=== PATIENT | female | born 2000 | race Caucasian/White ===

== ENCOUNTER 2018-01-17 02:01 | Emergency (ER) | payer OTHER ==
--- NOTE | 2018-01-17 02:36 | ED Physician Documentation ---
History of Present Illness - Stated complaint Stated Complaint: VOMITING - Chief complaint Chief Complaint: Abd Pain - History obtained from History obtained from: Patient - History of Present Illness Timing: Other (episodic x 5 months) Pain level now: 6 Improved by: no ameliorating factors Worsened by: no exacerbating factors - Additonal information Additional information: c/o back and lower abdominal pain, generalized headache x 5 months. presents tonight due to nausea, vomiting, and diarrhea that started tonight. She also c/ o vaginal d/c x 1 week . c/o urinary frequency without dysuria Review of Systems Constitutional: denies: Fever, Chills, Sweats Cardiac: reports: Reviewed and negative Respiratory: reports: Reviewed and negative GI: reports: Abdominal Pain, Nausea, Vomiting, Diarrhea : reports: Frequency. denies: Dysuria Musculoskeletal: reports: Back pain Neurologic: reports: Headache PD PAST MEDICAL HISTORY - Past Medical History Past Medical History: No - Past Surgical History Past Surgical History: No - Present Medications Home Medications: Ambulatory Orders Medication Instructions Recorded Confirmed Acetaminophen [Tylenol] 2 tab PO Q6HR PRN 01/17/18 01/17/18 Ibuprofen [Motrin] 1 tab PO Q8HR PRN 01/17/18 01/17/18 Ondansetron Odt [Zofran] 4 mg TL Q6H PRN #14 tablet 01/17/18 - Allergies Allergies/Adverse Reactions: Allergies Allergy/AdvReac Type Severity Reaction Status Date / Time No Known Drug Allergies Allergy Verified 01/17/18 02:19 - Social History Does the pt smoke?: No Smoking Status: Never smoker Does the pt drink ETOH?: No Does the pt have substance abuse?: No - Immunizations Immunizations are current?: Yes - POLST Patient has POLST: No PD ED PE NORMAL - Vitals Vital signs reviewed: Yes - General General: Alert and oriented X 3, No acute distress, Well developed/nourished - HEENT HEENT: Moist mucous membranes - Cardiac Cardiac: RRR, No murmur - Respiratory Respiratory: No respiratory distress, Clear bilaterally - Abdomen Abdomen: Soft, Non distended, Other (tenderness across lower abdomen without rebound or guarding, most pronounced in RLQ) - Back Back: No CVA TTP - Derm Derm: Normal color, Warm and dry Results - Vitals Vitals: Oxygen O2 Source Room air - Labs Labs: Laboratory Tests 01/17/18 01/17/18 01/17/18 03:05 03:05 03:05 WBC 10.8 RBC 4.65 Hgb 13.9 Hct 41.5 MCV 89.3 MCH 29.9 MCHC 33.5 RDW 13.4 Plt Count 214 MPV 8.3 Neut # 8.1 H Lymph # 1.9 [place] # 0.7 Eos # 0.0 Baso # 0.0 Absolute Nucleated RBC 0.00 Nucleated RBC % 0.0 Sodium 137 Potassium 4.4 Chloride 101 Carbon Dioxide 28 Anion Gap 8.0 BUN 20 Creatinine 0.6 Estimated GFR (MDRD) 129 Glucose 101 H Calcium 9.2 Total Bilirubin 0.4 AST 40 ALT 65 H Alkaline Phosphatase 58 Total Protein 7.8 Albumin 4.7 Globulin 3.1 Albumin/Globulin Ratio 1.5 Lipase 16 L Urine Color YELLOW Urine Clarity CLEAR Urine pH 6.0 Ur Specific [place] 1.025 Urine Protein NEGATIVE Urine Glucose (UA) NEGATIVE Urine Ketones NEGATIVE Urine Occult Blood NEGATIVE Urine Nitrite NEGATIVE Urine Bilirubin NEGATIVE Urine Urobilinogen 0.2 (NORMAL) Ur Leukocyte Esterase TRACE H Urine RBC 0-5 Urine WBC 4-5 Ur Squamous Epith Cells MANY Squamous H Urine Bacteria Few Ur Microscopic Review INDICATED Urine Culture Comments NOT INDICATED Urine HCG, Qual NEGATIVE - Rads (name of study) CT A/P Radiology: Prelim report reviewed, See rad report PD MEDICAL DECISION MAKING - ED course Complexity details: reviewed results, re-evaluated patient, considered differential, d/w patient Departure - Departure Disposition: 01 Home, Self Care Clinical Impression: Abdominal pain Qualifiers: Abdominal location: generalized Qualified Code(s): R10.84 - Generalized abdominal pain Cyst of ovary Qualifiers: Laterality: right Qualified Code(s): N83.201 - Unspecified ovarian cyst, right side Condition: Good Instructions: ED Abdominal Pain Unkn Cause, ED Cyst Ovarian Follow-Up: JUAN MAO MD [Primary Care Provider] - Prescriptions: Ondansetron Odt [Zofran] 4 mg TL Q6H PRN #14 tablet PRN Reason: Nausea / Vomiting Discharge Date/Time: 01/17/18 05:15
[2018-01-17] MEDS ORDERED: ONDANSETRON 4 MG/2 ML VIAL IVP STA (02:58)
[2018-01-17] MEDS ORDERED: SODIUM CHLORIDE 0.9% 1,000 ML IV STA (02:58)
[2018-01-17 03:13] LABS: BILIRUBIN,URINE NEGATIVE (NEGATIVE); CLARITY,URINE CLEAR (CLEAR); GLUCOSE, URINE (UA) NEGATIVE (NEGATIVE); KETONES,URINE (UA) NEGATIVE (NEGATIVE); LEUKOCYTE ESTERASE, URINE TRACE (NEGATIVE); NITRITE,URINE NEGATIVE (NEGATIVE); OCCULT BLOOD,URINE NEGATIVE (NEGATIVE); PROTEIN,URINE NEGATIVE (NEGATIVE); UROBILINOGEN,URINE 0.2 (NORMAL) E.U./dL (NORMAL)
[2018-01-17 03:15] LABS: HCG UR QUAL NEGATIVE
[2018-01-17 03:18] LABS: RBC,URINE 0-5 /HPF (0-5); SQUAMOUS EPITHELIAL CELL,UR MANY Squamous (<= Few)
[2018-01-17 03:19] LABS: BACTERIA,URINE Few /HPF (None Seen)
[2018-01-17 03:22] LABS: BASOPHILS % (AUTO) 0.2 %; EOSINOPHILS % (AUTO) 0.3 %; HGB - HEMOGLOBIN 13.9 g/dL (12.0-16.0); LYMPHOCYTES # (AUTO) 1.9 10^3/uL (1.5-3.5); MEAN CORPUSCULAR HEMOGLOBIN 29.9 pg (27.0-31.0); MEAN CORPUSCULAR HGB CONC 33.5 g/dL (32.0-36.0); MEAN CORPUSCULAR VOLUME 89.3 fL (81.0-99.0); MEAN PLATELET VOLUME 8.3 fL (7.9-10.8); MONOCYTES # (AUTO) 0.7 10^3/uL (0.0-1.0); MONOCYTES % (AUTO) 6.6 %; NEUTROPHILS # (AUTO) 8.1 10^3/uL (1.5-6.6); NEUTROPHILS % (AUTO) 74.9 %; PLT - PLATELET COUNT 214 10^3/uL (130-450); RED BLOOD COUNT 4.65 10^6/uL (4.20-5.40); RED CELL DISTRIBUTION WIDTH 13.4 % (12.0-15.0); WHITE BLOOD COUNT 10.8 x10^3/uL (4.8-10.8)
[2018-01-17 03:23] LABS: ALBUMIN 4.7 g/dL (3.2-5.5); ALBUMIN/GLOBULIN RATIO 1.5 (1.0-2.2); BILIRUBIN,TOTAL 0.4 mg/dL (0.2-1.0); CALCIUM 9.2 mg/dL (8.5-10.3); CREATININE 0.6 mg/dL (0.4-1.0); TOTAL PROTEIN 7.8 g/dL (6.7-8.2)
[2018-01-17] MEDS ORDERED: IOPAMIDOL-300 100 ML VIAL ONE (03:27)
[2018-01-17] MEDS ORDERED: IOPAMIDOL-300 100 ML VIAL IVP ONE (03:55)
--- NOTE | 2018-01-17 04:09 | CT Report ---
EXAM: CT ABDOMEN AND PELVIS EXAM DATE: 01/17/2018 03:39 AM. CLINICAL HISTORY: Right lower quadrant pain. Nausea and vomiting. COMPARISONS: None. TECHNIQUE: Routine helical CT imaging was performed through the abdomen and pelvis. IV contrast: 100 ML ISOVUE 300. Enteric contrast: No. Reconstructions: Coronal and sagittal. In accordance with CT protocol optimization, one or more of the following dose reduction techniques w ere utilized for this exam: automated exposure control, adjustment of mA and/or KV based on patient s ize, or use of iterative reconstructive technique. FINDINGS: Lung Bases: Unremarkable. Liver: Normal. No masses. Gallbladder/Bile Ducts: Unremarkable. Spleen: Normal. Pancreas: Normal. Adrenal Glands: Normal. Kidneys: Normal. No masses or hydronephrosis. Peritoneal Cavity/Bowel: Mild amount of free fluid in the pelvis. No free air. No bowel obstruction s een. No diverticulitis. No lymphadenopathy. Ascending and transverse colon are collapsed and appear m ildly thickened. Appendix is retrocecal and appears normal. Pelvic Organs: Collapsed 2.3 cm right ovarian cyst. Visualized pelvic organs are otherwise unremarkab le. Vasculature: No aneurysms or other significant abnormality. Bones: No significant abnormality. Other: None. IMPRESSION: 1. Collapsed 2.3 cm right ovarian cyst with a mild amount of free fluid in the pelvis. 2. Appendix is retrocecal and appears normal. 3. Ascending and transverse colon are collapsed and appear mildly thickened. This may simply represen t nondistention. Mild colitis also possible. [facility] Referring Provider Line: [phone] SITE ID: [id number]
[2018-01-17 05:16] VITALS: BP 100/52
== END 2018-01-17 05:15 | disposition home or self-care (01) ==
LOC: ED 02:01
DX: N83.201 Unspecified ovarian cyst, right side (principal); R10.84 Generalized abdominal pain
CPT/HCPCS: 36415; 74177; 80053; 81001; 81025; 83690; 85025; 96361; 96374; 99283; 99284; Q9967; 81003; 87086

== ENCOUNTER 2018-05-12 16:29 | Emergency (ER) | payer OTHER ==
[2018-05-12] MEDS ORDERED: SODIUM CHLORIDE 0.9% 1,000 ML IV ONE (17:32)
[2018-05-12] MEDS ORDERED: METOCLOPRAMIDE 10 MG/2 ML VIAL IVP STA (17:32)
--- NOTE | 2018-05-12 17:33 | ED Physician Documentation ---
History of Present Illness - Stated complaint Stated Complaint: WEAK/VOM/15 WKS - Chief complaint Chief Complaint: General - History obtained from History obtained from: Patient - History of Present Illness Timing: Today (G1 at 15 weeks who was feeling achy this morning and then had a large episode of vomiting at 330 while eating. She has chronic changes in her bowel movements from hard to soft but notes nothing abnormal for her there. She has mild diffuse abdominal pain but no fevers. She has had sweats. No lower abdominal cramping or bleeding.) Review of Systems Constitutional: reports: Fatigue, Sweats. denies: Fever, Chills Cardiac: denies: Chest pain / pressure, Palpitations Respiratory: denies: Dyspnea, Cough GI: reports: Nausea, Vomiting. denies: Diarrhea PD PAST MEDICAL HISTORY - Past Surgical History Past Surgical History: No - Present Medications Home Medications: Ambulatory Orders Medication Instructions Recorded Confirmed Cefdinir 300 mg PO BID #14 capsule 05/12/18 Ondansetron HCl [Zofran] 4 mg PO Q6H PRN #10 tablet 05/12/18 - Allergies Allergies/Adverse Reactions: Allergies Allergy/AdvReac Type Severity Reaction Status Date / Time No Known Drug Allergies Allergy Verified 05/12/18 16:54 - Social History Does the pt smoke?: No Smoking Status: Never smoker Does the pt drink ETOH?: No Does the pt have substance abuse?: No - Immunizations Immunizations are current?: Yes - POLST Patient has POLST: No PD ED PE NORMAL - Vitals Vital signs reviewed: Yes - General General: Alert and oriented X 3, No acute distress - Cardiac Cardiac: RRR, No murmur - Respiratory Respiratory: No respiratory distress, Clear bilaterally - Abdomen Abdomen: Normal bowel sounds, Soft, Non tender - Female Female : Other (Bedside ultrasound demonstrates single live intrauterine with heart rate of 154.) - Derm Derm: Normal color, Warm and dry - Neuro Neuro: Alert and oriented X 3, Normal speech Results - Vitals Vitals: Vital Signs - 24 hr 05/12/18 05/12/18 16:52 19:17 Temperature 36.7 C 36.9 C Heart Rate 89 75 Respiratory 18 12 Rate Blood Pressure 99/61 120/81 H O2 Saturation 99 99 Oxygen O2 Source Room air - Labs Labs: Laboratory Tests 05/12/18 05/12/18 05/12/18 17:47 17:47 19:15 WBC 7.3 RBC 3.99 L Hgb 12.2 Hct 35.6 L MCV 89.2 MCH 30.5 MCHC 34.2 RDW 13.8 Plt Count 179 MPV 7.9 Neut # (Auto) 5.4 Lymph # (Auto) 1.5 [place] # (Auto) 0.4 Eos # (Auto) 0.0 Baso # (Auto) 0.0 Absolute Nucleated RBC 0.00 Nucleated RBC % 0.0 Sodium 134 L Potassium 3.3 L Chloride 100 L Carbon Dioxide 26 Anion Gap 8.0 BUN 9 Creatinine 0.5 Estimated GFR (MDRD) 159 Glucose 96 Calcium 9.1 Total Bilirubin 0.7 AST 18 ALT 16 Alkaline Phosphatase 49 Total Protein 6.9 Albumin 4.0 Globulin 2.9 Albumin/Globulin Ratio 1.4 Lipase 23 Urine Color YELLOW Urine Clarity HAZY Urine pH 6.0 Ur Specific [place] 1.015 Urine Protein NEGATIVE Urine Glucose (UA) NEGATIVE Urine Ketones NEGATIVE Urine Occult Blood NEGATIVE Urine Nitrite NEGATIVE Urine Bilirubin NEGATIVE Urine Urobilinogen 0.2 (NORMAL) Ur Leukocyte Esterase LARGE H Ur Microscopic Review INDICATED Urine Culture Comments Not Reportable PD MEDICAL DECISION MAKING - ED course ED course: 17-year-old G1 in second trimester with vomiting and feeling weak today. Workup demonstrates a UTI which was treated with Rocephin here. Feeling fine after IV fluids and Reglan here. Past a p.o. challenge. - Sepsis Event Vital Signs: Vital Signs - 24 hr 05/12/18 05/12/18 16:52 19:17 Temperature 36.7 C 36.9 C Heart Rate 89 75 Respiratory 18 12 Rate Blood Pressure 99/61 120/81 H O2 Saturation 99 99 Oxygen O2 Source Room air Departure - Departure Disposition: 01 Home, Self Care Clinical Impression: Abdominal pain Qualifiers: Abdominal location: lower abdomen, unspecified Qualified Code(s): R10.30 - Lower abdominal pain, unspecified Qualifiers: Weeks of gestation: 15 weeks Qualified Code(s): Z3A.15 - 15 weeks gestation of UTI (urinary tract infection) Qualifiers: Urinary tract infection type: site unspecified Hematuria presence: without hematuria Qualified Code(s): N39.0 - Urinary tract infection, site not specified Condition: Good Record reviewed to determine appropriate education?: Yes Instructions: ED Preg Established Normal Sxs, ED UTI Cystitis Female Prescriptions: Cefdinir 300 mg PO BID #14 capsule Ondansetron HCl [Zofran] 4 mg PO Q6H PRN #10 tablet PRN Reason: Nausea / Vomiting Comments: We will culture your urine, the results should be done in 48-72 hours. If an antibiotic change is necessary we will call you. Return if worse in the meantime, especially if you develop increasing flank pain, fevers, or cannot keep down the medication. Forms: Activity restrictions
[2018-05-12 17:51] LABS: BASOPHILS % (AUTO) 0.2 %; EOSINOPHILS % (AUTO) 0.6 %; HGB - HEMOGLOBIN 12.2 g/dL (12.0-16.0); LYMPHOCYTES # (AUTO) 1.5 10^3/uL (1.5-3.5); LYMPHOCYTES % (AUTO) 19.8 %; MEAN CORPUSCULAR HEMOGLOBIN 30.5 pg (27.0-31.0); MEAN CORPUSCULAR HGB CONC 34.2 g/dL (32.0-36.0); MEAN CORPUSCULAR VOLUME 89.2 fL (81.0-99.0); MEAN PLATELET VOLUME 7.9 fL (7.9-10.8); MONOCYTES # (AUTO) 0.4 10^3/uL (0.0-1.0); NEUTROPHILS # (AUTO) 5.4 10^3/uL (1.5-6.6); NEUTROPHILS % (AUTO) 74.4 %; PLT - PLATELET COUNT 179 10^3/uL (130-450); RED BLOOD COUNT 3.99 10^6/uL (4.20-5.40); RED CELL DISTRIBUTION WIDTH 13.8 % (12.0-15.0); WHITE BLOOD COUNT 7.3 x10^3/uL (4.8-10.8)
[2018-05-12 18:04] LABS: ALBUMIN/GLOBULIN RATIO 1.4 (1.0-2.2); BILIRUBIN,TOTAL 0.7 mg/dL (0.2-1.0); CALCIUM 9.1 mg/dL (8.5-10.3); CREATININE 0.5 mg/dL (0.4-1.0); TOTAL PROTEIN 6.9 g/dL (6.7-8.2)
[2018-05-12 19:32] LABS: BILIRUBIN,URINE NEGATIVE (NEGATIVE); GLUCOSE, URINE (UA) NEGATIVE (NEGATIVE); KETONES,URINE (UA) NEGATIVE (NEGATIVE); LEUKOCYTE ESTERASE, URINE LARGE (NEGATIVE); NITRITE,URINE NEGATIVE (NEGATIVE); OCCULT BLOOD,URINE NEGATIVE (NEGATIVE); PROTEIN,URINE NEGATIVE (NEGATIVE); UROBILINOGEN,URINE 0.2 (NORMAL) E.U./dL (NORMAL)
[2018-05-12 19:43] LABS: CLARITY,URINE HAZY (CLEAR)
[2018-05-12] MEDS ORDERED: cefTRIAXone 1 GM in SODIUM CHLORIDE 0.9% MINIBAG 100 ML IV STA (19:49)
[2018-05-12 20:02] LABS: AMORPHOUS SEDIMENT,UR Rare /LPF; BACTERIA,URINE Many /HPF (None Seen); RBC,URINE 0-5 /HPF (0-5); SQUAMOUS EPITHELIAL CELL,UR MANY Squamous (<= Few)
[2018-05-12 20:50] VITALS: BP 119/77
== END 2018-05-12 20:56 | disposition home or self-care (01) ==
LOC: ED 16:29
DX: O23.42 Unspecified infection of urinary tract in pregnancy, second trimester (principal); O26.892 Other specified pregnancy related conditions, second trimester; R10.30 Lower abdominal pain, unspecified; Z3A.15 15 weeks gestation of pregnancy
CPT/HCPCS: 36415; 80053; 81001; 83690; 85025; 96361; 96365; 96375; 99283; J2765; 81003; 87086

== ENCOUNTER 2018-06-16 21:12 | Outpatient (CLI) | payer OTHER ==
[2018-06-16 21:27] VITALS: BP 102/58
[2018-06-16] MEDS ORDERED: SODIUM CHLORIDE FLUSH 0.9% 10 ML SYRINGE ONE (21:43)
[2018-06-16 21:51] LABS: BILIRUBIN,URINE NEGATIVE (NEGATIVE); GLUCOSE, URINE (UA) NEGATIVE (NEGATIVE); KETONES,URINE (UA) NEGATIVE (NEGATIVE); LEUKOCYTE ESTERASE, URINE NEGATIVE (NEGATIVE); NITRITE,URINE NEGATIVE (NEGATIVE); OCCULT BLOOD,URINE NEGATIVE (NEGATIVE); PH,URINE 7.5 PH (5.0-7.5); PROTEIN,URINE NEGATIVE (NEGATIVE); UROBILINOGEN,URINE 0.2 (NORMAL) E.U./dL (NORMAL)
[2018-06-16 21:54] LABS: CLARITY,URINE CLEAR (CLEAR)
== END 2018-06-16 22:35 | disposition home or self-care (01) ==
LOC: WFO 21:12 → FBP 21:15 → WFO 22:35
PROVIDERS: ATTEND Obstetrics & Gynecology
DX: O23.592 Infection of other part of genital tract in pregnancy, second trimester (principal); B96.89 Other specified bacterial agents as the cause of diseases classified elsewhere; Z3A.20 20 weeks gestation of pregnancy; O26.92 Pregnancy related conditions, unspecified, second trimester; O99.89 Other specified diseases and conditions complicating pregnancy, childbirth and the puerperium; R10.9 Unspecified abdominal pain
CPT/HCPCS: 81001; 81003; 87086; 87210; 99213

== ENCOUNTER 2018-06-18 18:58 | Outpatient (CLI) | payer OTHER ==
[2018-06-18 19:56] VITALS: BP 106/55
[2018-06-18 20:35] LABS: BILIRUBIN,URINE NEGATIVE (NEGATIVE); GLUCOSE, URINE (UA) NEGATIVE (NEGATIVE); KETONES,URINE (UA) NEGATIVE (NEGATIVE); LEUKOCYTE ESTERASE, URINE SMALL (NEGATIVE); NITRITE,URINE NEGATIVE (NEGATIVE); OCCULT BLOOD,URINE NEGATIVE (NEGATIVE); PROTEIN,URINE NEGATIVE (NEGATIVE); UROBILINOGEN,URINE 0.2 (NORMAL) E.U./dL (NORMAL)
[2018-06-18 20:42] LABS: CLARITY,URINE HAZY (CLEAR)
[2018-06-18 20:43] LABS: BACTERIA,URINE Moderate /HPF (None Seen); RBC,URINE 0-5 /HPF (0-5); SQUAMOUS EPITHELIAL CELL,UR MANY Squamous (<= Few)
== END 2018-06-18 21:10 | disposition home or self-care (01) ==
LOC: WFO 18:58 → FBP 19:00 → WFO 21:10
PROVIDERS: ATTEND Obstetrics & Gynecology
DX: O23.592 Infection of other part of genital tract in pregnancy, second trimester (principal); N76.0 Acute vaginitis; B96.89 Other specified bacterial agents as the cause of diseases classified elsewhere; Z3A.20 20 weeks gestation of pregnancy
CPT/HCPCS: 81001; 87086; 99213

== ENCOUNTER 2018-07-27 08:00 | Outpatient (CLI) | payer OTHER ==
[2018-07-28 15:43] LABS: MUDS CUTOFF CONCENTRATIONS CUTOFF CONC BELOW:
[2018-07-28 16:07] LABS: AMPHETAMINE SCREEN,URINE NEGATIVE (NEGATIVE); BENZODIAZEPINES SCREEN, URINE NEGATIVE (NEGATIVE); COCAINE SCREEN URINE NEGATIVE (NEGATIVE); METHADONE SCREEN, URINE NEGATIVE (NEGATIVE); METHAMPHETAMINES SCREEN, URINE NEGATIVE (NEGATIVE); OPIATE SCREEN, URINE NEGATIVE (NEGATIVE); OXYCODONE SCREEN, URINE NEGATIVE (NEGATIVE); PROPOXYPHENE SCREEN, URINE NEGATIVE (NEGATIVE); TRICYCLIC ANTIDEPRESSANT,URINE NEGATIVE (NEGATIVE)
== END 2018-07-27 23:59 ==
LOC: LAB.R 08:00
PROVIDERS: ATTEND Obstetrics & Gynecology
DX: Z34.90 Encounter for supervision of normal pregnancy, unspecified, unspecified trimester (principal)
CPT/HCPCS: 80306

== ENCOUNTER 2018-07-28 07:30 | Outpatient (CLI) | payer OTHER ==
[2018-07-28 09:04] LABS: MEAN CORPUSCULAR HGB CONC 34.2 g/dL (32.0-36.0); MEAN CORPUSCULAR VOLUME 93.6 fL (81.0-99.0); RED BLOOD COUNT 3.77 10^6/uL (4.20-5.40); RED CELL DISTRIBUTION WIDTH 14.6 % (12.0-15.0)
== END 2018-07-28 07:31 | disposition home or self-care (01) ==
LOC: LAB 07:30
PROVIDERS: ATTEND Obstetrics & Gynecology
DX: Z34.90 Encounter for supervision of normal pregnancy, unspecified, unspecified trimester (principal)
CPT/HCPCS: 36415; 82950; 85027; 86850

== ENCOUNTER 2018-08-09 15:19 | Outpatient (CLI) | payer OTHER | END 2018-08-09 15:20 | disposition EMS.NT | LOC: EMS 15:19 | PROVIDERS: ATTEND Surgery | DX: O99.89 Other specified diseases and conditions complicating pregnancy, childbirth and the puerperium (principal); R10.9 Unspecified abdominal pain ==

== ENCOUNTER 2018-08-09 16:27 | Observation (INO) | payer OTHER ==
[2018-08-09] MEDS ORDERED: TERBUTALINE 1 MG/ML VIAL SUBQ ONE (16:30)
[2018-08-09] MEDS ORDERED: BETAMETHASONE 30 MG/5 ML VIAL IM SCH (16:42)
[2018-08-09 16:43] LABS: MUDS CUTOFF CONCENTRATIONS CUTOFF CONC BELOW:
[2018-08-09] MEDS ORDERED: BETAMETHASONE 30 MG/5 ML VIAL ONE (16:44)
[2018-08-09 16:48] LABS: BILIRUBIN,URINE NEGATIVE (NEGATIVE); GLUCOSE, URINE (UA) NEGATIVE (NEGATIVE); KETONES,URINE (UA) NEGATIVE (NEGATIVE); LEUKOCYTE ESTERASE, URINE TRACE (NEGATIVE); NITRITE,URINE NEGATIVE (NEGATIVE); OCCULT BLOOD,URINE NEGATIVE (NEGATIVE); PROTEIN,URINE NEGATIVE (NEGATIVE); UROBILINOGEN,URINE 0.2 (NORMAL) E.U./dL (NORMAL)
[2018-08-09 16:59] LABS: CLARITY,URINE HAZY (CLEAR)
[2018-08-09 17:00] LABS: AMPHETAMINE SCREEN,URINE NEGATIVE (NEGATIVE); BACTERIA,URINE Many /HPF (None Seen); BENZODIAZEPINES SCREEN, URINE NEGATIVE (NEGATIVE); COCAINE SCREEN URINE NEGATIVE (NEGATIVE); METHADONE SCREEN, URINE NEGATIVE (NEGATIVE); METHAMPHETAMINES SCREEN, URINE NEGATIVE (NEGATIVE); OPIATE SCREEN, URINE NEGATIVE (NEGATIVE); OXYCODONE SCREEN, URINE NEGATIVE (NEGATIVE); PROPOXYPHENE SCREEN, URINE NEGATIVE (NEGATIVE); RBC,URINE 0-5 /HPF (0-5); SQUAMOUS EPITHELIAL CELL,UR MANY Squamous (<= Few); TRICYCLIC ANTIDEPRESSANT,URINE NEGATIVE (NEGATIVE)
[2018-08-09 17:08] LABS: RUPTURE OF MEMBRANES PLUS NEGATIVE (NEGATIVE)
[2018-08-09 17:17] LABS: BASOPHILS % (AUTO) 0.1 %; EOSINOPHILS % (AUTO) 0.3 %; LYMPHOCYTES # (AUTO) 2.9 10^3/uL (1.5-3.5); LYMPHOCYTES % (AUTO) 33.8 %; MEAN CORPUSCULAR HEMOGLOBIN 31.4 pg (27.0-31.0); MEAN CORPUSCULAR HGB CONC 33.7 g/dL (32.0-36.0); MEAN CORPUSCULAR VOLUME 93.3 fL (81.0-99.0); MEAN PLATELET VOLUME 7.9 fL (7.9-10.8); MONOCYTES # (AUTO) 0.5 10^3/uL (0.0-1.0); MONOCYTES % (AUTO) 6.1 %; NEUTROPHILS % (AUTO) 59.7 %; PLT - PLATELET COUNT 187 10^3/uL (130-450); RED BLOOD COUNT 3.83 10^6/uL (4.20-5.40); RED CELL DISTRIBUTION WIDTH 14.1 % (12.0-15.0); WHITE BLOOD COUNT 8.5 x10^3/uL (4.8-10.8)
[2018-08-09] MEDS ORDERED: TERBUTALINE 2.5 MG TABLET PO ONE (17:20)
[2018-08-09 17:30] LABS: ALBUMIN 3.3 g/dL (3.2-5.5); ALBUMIN/GLOBULIN RATIO 1.5 (1.0-2.2); BILIRUBIN,TOTAL 0.6 mg/dL (0.2-1.0); CALCIUM 8.2 mg/dL (8.5-10.3); CREATININE 0.5 mg/dL (0.4-1.0); TOTAL PROTEIN 5.5 g/dL (6.7-8.2)
[2018-08-09] MEDS: LACTATED RINGERS 1,000 ML IV SCH ×2 (18:28→18:37)
--- NOTE | 2018-08-09 20:00 | PREOP HISTORY & PHYSICAL ---
DATE OF SERVICE: 08/09/2018 Physician: Oc Hull MD IDENTIFICATION: Patient is a 17-year-old, G1, P0 female whose last menstrual period was 01/25/2018. She is currently 28.0 weeks at this time. Her final ANDREW is 11/01/2018. CHIEF COMPLAINT: Contractions. INTERVAL HISTORY: The patient states that this afternoon she developed uterine contractions spontane ously. They became progressively stronger with time and more painful. They were occurring about francisco ry 5 minutes. She arrived via ambulance for evaluation. Her initial OB care has been done at [facility]. She recently transferred over to [facility] at 25 weeks. She was first seen on 0 01/25/2018. She has had her routine labs, which show her to be AB positive. She is antibody screen n egative. She is rubella immune. RPR negative, HIV negative, GC/chlamydia negative. She has had a 5 0-gram Glucola with results being 97. This has been complicated with a single UTI during p regnancy. PAST MEDICAL HISTORY: Patient denies any hypertensive, diabetic, cardiac, or pulmonary disease. PAST SURGICAL HISTORY: None. ALLERGIES: NONE KNOWN. CURRENT MEDICATIONS: vitamins and Tylenol. HABITS: Denies use of alcohol, tobacco, or street or addictive drugs. 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 PHYSICAL EXAMINATION GENERAL: Well-developed, well-nourished, [place] female. She is in no acute distress. Ini tially, she was having contractions, which were moderate in intensity. HEENT: Pupils are equal and round. Extraocular muscles are intact. NECK: Thyroid is not palpably enlarged. HEART: Regular rate and rhythm without murmurs. LUNGS: Lung ruggiero are clear without rales or wheezes. ABDOMEN: Soft. Fundal height measured roughly 28 cm. The uterus is nontender. BACK: No spinal or CVA tenderness. EXTREMITIES: There is no calf tenderness noted at this time. GYNECOLOGIC: A sterile speculum exam was performed. At which time, FFN was obtained, group B strep culture, as well as ROM plus. Her digital examination revealed a cervix, which is closed and maybe 5 0% effaced. The presenting part resides high in the pelvis at this time. LABORATORY DATA: She currently has a CBC and CMP pending at this time. IMPRESSION: A 17-year-old primigravida at 28 weeks EGA with contractions with possible early cervica l changes. PLAN: Patient was given 0.25 of terbutaline subcutaneous. She was administered betamethasone 12 mg IM. At this particular time, her contraction pain appeared to be slowing down. Patient has an ultra sound scheduled to check for cervical length, presentation, as well as funneling. We will roopa tor patient for contractions and at this time feel that she is improving and her contractions are res olving. TD: 08/09/2018 17:20
--- NOTE | 2018-08-09 20:46 | Ultrasound Report ---
Reason: PRE TERM CONTRACTIONS. CHECK CX LEINGTH, ANIL, look Procedure Date: 08/09/2018 Accession Number: [id number] / [id number] Procedure: US - OB Limited CPT Code: FULL RESULT: EXAM: LIMITED OBSTETRICAL ULTRASOUND EXAM DATE: 08/09/2018 08:24 PM. CLINICAL HISTORY: 17-year-old female. PRE TERM CONTRACTIONS. CHECK CX LENGTH, ANIL, look. COMPARISON: None. TECHNIQUE: Real-time sonographic evaluation of the fetus performed by the youth officer. Multiple sales representative malt liquors static images were saved for review. Additional transvaginal imaging to more accurately evaluate cervical length/placental position/etc. DATING: Established EGA 28 weeks 0 days with ANDREW 11/01/2018. GENERAL EVALUATION Cox . Cardiac activity: 150 bpm. Presentation: Breech. Placenta: Posterior fundal position without previa or hemorrhage. Amniotic fluid: Normal. ANIL 17.0 cm. MVP 5.8 cm. ANATOMY Not assessed. MATERNAL STRUCTURES Cervix closed and 4.7 cm in length on transvaginal scan. IMPRESSION: 1. Cox live intrauterine in breech position with gestational age 28 weeks 0 days based on established ANDREW. 2. Cervix closed and 4.7 cm in length. 3. Normal amniotic fluid volume with ANIL 17.0 cm. [facility]
--- NOTE | 2018-08-09 21:40 | Ultrasound Report ---
Reason: contractions check cervical length Procedure Date: 08/09/2018 Accession Number: [id number] / [id number] Procedure: US - OB Transvaginal CPT Code: FULL RESULT: EXAM: LIMITED OBSTETRICAL ULTRASOUND EXAM DATE: 08/09/2018 08:24 PM. CLINICAL HISTORY: 17-year-old female. PRE TERM CONTRACTIONS. CHECK CX LENGTH, ANIL, look. COMPARISON: None. TECHNIQUE: Real-time sonographic evaluation of the fetus performed by the charity fundraiser. Multiple outbound call center representative static images were saved for review. Additional transvaginal imaging to more accurately evaluate cervical length/placental position/etc. DATING: Established EGA 28 weeks 0 days with ANDREW 11/01/2018. GENERAL EVALUATION Cox . Cardiac activity: 150 bpm. Presentation: Breech. Placenta: Posterior fundal position without previa or hemorrhage. Amniotic fluid: Normal. ANIL 17.0 cm. MVP 5.8 cm. ANATOMY Not assessed. MATERNAL STRUCTURES Cervix closed and 4.7 cm in length on transvaginal scan. IMPRESSION: 1. Cox live intrauterine in breech position with gestational age 28 weeks 0 days based on established ANDREW. 2. Cervix closed and 4.7 cm in length. 3. Normal amniotic fluid volume with ANIL 17.0 cm. [facility]
[2018-08-10] MEDS: TERBUTALINE 2.5 MG TABLET PO SCH ×3 (00:39→08:06)
[2018-08-10 08:39] VITALS: BP 116/66
--- NOTE | 2018-08-10 08:48 | PROVIDER PROGRESS NOTE ---
Subjective - Prog Note Date Prog Note Date: 08/10/18 Prog Note Time: 08:42 - Subjective Pt reports feeling: Improved (Pt ian contractions. good FM.) Objective - Vital Signs/Intake & Output Reviewed Vital Signs: Yes Vital Signs: Vital Signs x48h Temp Pulse Resp BP Pulse Ox 08/10/18 08:38 36.8 C 103 H 18 116/66 98 08/10/18 04:05 37.1 C 82 18 96/55 L 97 Intake & Output: Intake & Output 08/08/18 08/08/18 08/09/18 08/10/18 00:59 23:59 23:59 23:59 Intake Total 400 1000 Output Total 400 Balance 0 1000 - Objective General Appearance: positive: No acute distress, Alert Respiratory: positive: Chest non-tender, No respiratory distress Cardiovascular: positive: Regular rate & rhythm, No murmur, No gallop Abdomen: positive: Non-tender, Mass (uterus is non tender) Extremities: positive: Non-tender. negative: Calf tenderness, Ricky's sign/cords - Lab Results Fish Bones: 08/09/18 17:06 08/09/18 17:06 Other Labs: Lab Results x24hrs 08/09/18 08/09/18 08/09/18 Range/Units 17:06 17:06 16:20 WBC 8.5 (4.8-10.8) x10^3/uL RBC 3.83 L (4.20-5.40) 10^6/uL Hgb 12.0 (12.0-16.0) g/dL Hct 35.7 L (37.0-47.0) % MCV 93.3 (81.0-99.0) fL MCH 31.4 H (27.0-31.0) pg MCHC 33.7 (32.0-36.0) g/dL RDW 14.1 (12.0-15.0) % Plt Count 187 (130-450) 10^3/uL MPV 7.9 (7.9-10.8) fL Neut # (Auto) 5.0 (1.5-6.6) 10^3/uL Lymph # (Auto) 2.9 (1.5-3.5) 10^3/uL [place] # (Auto) 0.5 (0.0-1.0) 10^3/uL Eos # (Auto) 0.0 (0.0-0.7) 10^3/uL Baso # (Auto) 0.0 (0.0-0.1) 10^3/uL Absolute Nucleated RBC 0.00 x10^3/uL Nucleated RBC % 0.0 /100WBC Sodium 136 (135-145) mmol/L Potassium 2.7 L (3.5-5.0) mmol/L Chloride 103 (101-111) mmol/L Carbon Dioxide 24 (21-32) mmol/L Anion Gap 9.0 (6-13) BUN 10 (6-20) mg/dL Creatinine 0.5 (0.4-1.0) mg/dL Estimated GFR (MDRD) 159 (>89) Glucose 129 H (70-100) mg/dL Calcium 8.2 L (8.5-10.3) mg/dL Total Bilirubin 0.6 (0.2-1.0) mg/dL AST 18 (10-42) IU/L ALT 13 (10-60) IU/L Alkaline Phosphatase 82 (42-121) IU/L Total Protein 5.5 L (6.7-8.2) g/dL Albumin 3.3 (3.2-5.5) g/dL Globulin 2.2 (2.1-4.2) g/dL Albumin/Globulin Ratio 1.5 (1.0-2.2) Urine Color Urine Clarity (CLEAR) Urine pH (5.0-7.5) PH Ur Specific [place] (1.002-1.030) Urine Protein (NEGATIVE) mg/dL Urine Glucose (UA) (NEGATIVE) mg/dL Urine Ketones (NEGATIVE) mg/dL Urine Occult Blood (NEGATIVE) Urine Nitrite (NEGATIVE) Urine Bilirubin (NEGATIVE) Urine Urobilinogen (NORMAL) E.U./dL Ur Leukocyte Esterase (NEGATIVE) Urine RBC (0-5) /HPF Urine WBC (0-5) /HPF Ur Squamous Epith Cells (<= Few) Urine Bacteria (None Seen) /HPF Membranes Rupture (NEGATIVE) Urine Opiates Screen (NEGATIVE) Ur Oxycodone Screen (NEGATIVE) Urine Methadone Screen (NEGATIVE) Ur Propoxyphene Screen (NEGATIVE) Ur Barbiturates Screen (NEGATIVE) Ur Tricyclics Screen (NEGATIVE) Ur Phencyclidine Scrn (NEGATIVE) Ur Amphetamine Screen (NEGATIVE) U Methamphetamines Scrn (NEGATIVE) U Benzodiazepines Scrn (NEGATIVE) Urine Cocaine Screen (NEGATIVE) U Cannabinoids Screen (NEGATIVE) Fibronectin NEGATIVE (NEGATIVE) 08/09/18 08/09/18 08/09/18 Range/Units 16:20 16:20 16:20 WBC (4.8-10.8) x10^3/uL RBC (4.20-5.40) 10^6/uL Hgb (12.0-16.0) g/dL Hct (37.0-47.0) % MCV (81.0-99.0) fL MCH (27.0-31.0) pg MCHC (32.0-36.0) g/dL RDW (12.0-15.0) % Plt Count (130-450) 10^3/uL MPV (7.9-10.8) fL Neut # (Auto) (1.5-6.6) 10^3/uL Lymph # (Auto) (1.5-3.5) 10^3/uL [place] # (Auto) (0.0-1.0) 10^3/uL Eos # (Auto) (0.0-0.7) 10^3/uL Baso # (Auto) (0.0-0.1) 10^3/uL Absolute Nucleated RBC x10^3/uL Nucleated RBC % /100WBC Sodium (135-145) mmol/L Potassium (3.5-5.0) mmol/L Chloride (101-111) mmol/L Carbon Dioxide (21-32) mmol/L Anion Gap (6-13) BUN (6-20) mg/dL Creatinine (0.4-1.0) mg/dL Estimated GFR (MDRD) (>89) Glucose (70-100) mg/dL Calcium (8.5-10.3) mg/dL Total Bilirubin (0.2-1.0) mg/dL AST (10-42) IU/L ALT (10-60) IU/L Alkaline Phosphatase (42-121) IU/L Total Protein (6.7-8.2) g/dL Albumin (3.2-5.5) g/dL Globulin (2.1-4.2) g/dL Albumin/Globulin Ratio (1.0-2.2) Urine Color YELLOW Urine Clarity HAZY (CLEAR) Urine pH 7.0 (5.0-7.5) PH Ur Specific [place] 1.020 (1.002-1.030) Urine Protein NEGATIVE (NEGATIVE) mg/dL Urine Glucose (UA) NEGATIVE (NEGATIVE) mg/dL Urine Ketones NEGATIVE (NEGATIVE) mg/dL Urine Occult Blood NEGATIVE (NEGATIVE) Urine Nitrite NEGATIVE (NEGATIVE) Urine Bilirubin NEGATIVE (NEGATIVE) Urine Urobilinogen 0.2 (NORMAL) (NORMAL) E.U./dL Ur Leukocyte Esterase TRACE H (NEGATIVE) Urine RBC 0-5 (0-5) /HPF Urine WBC 6-10 H (0-5) /HPF Ur Squamous Epith Cells MANY Squamous H (<= Few) Urine Bacteria Many H (None Seen) /HPF Membranes Rupture NEGATIVE (NEGATIVE) Urine Opiates Screen NEGATIVE (NEGATIVE) Ur Oxycodone Screen NEGATIVE (NEGATIVE) Urine Methadone Screen NEGATIVE (NEGATIVE) Ur Propoxyphene Screen NEGATIVE (NEGATIVE) Ur Barbiturates Screen NEGATIVE (NEGATIVE) Ur Tricyclics Screen NEGATIVE (NEGATIVE) Ur Phencyclidine Scrn NEGATIVE (NEGATIVE) Ur Amphetamine Screen NEGATIVE (NEGATIVE) U Methamphetamines Scrn NEGATIVE (NEGATIVE) U Benzodiazepines Scrn NEGATIVE (NEGATIVE) Urine Cocaine Screen NEGATIVE (NEGATIVE) U Cannabinoids Screen NEGATIVE (NEGATIVE) Fibronectin (NEGATIVE) Assessment/Plan - Problem List (1) 28 weeks gestation of Impression: Follow up Appt one week (2) contractions Impression: ffN negative, AROM negative, Cx leingth is long and closed. Contractions resolved Terbutaline 2.5 mg prn conractions.
--- NOTE | 2018-08-10 09:01 | Discharge Plan ---
Discharge Plan Disposition: 01 Home, Self Care Condition: Good Diet: Regular Activity Restrictions: no lifting greater than 20 lb Shower Restrictions: No Driving Restrictions: No No Smoking: If you smoke, Please STOP! Call for help.
== END 2018-08-10 09:10 | disposition home or self-care (01) ==
LOC: INTOOBSV 16:27 → FBP 16:27
PROVIDERS: ADMIT Obstetrics & Gynecology; ATTEND Obstetrics & Gynecology
DX: O47.03 False labor before 37 completed weeks of gestation, third trimester (principal); Z3A.28 28 weeks gestation of pregnancy
CPT/HCPCS: 76815; 76817; 80053; 80306; 81001; 82731; 84112; 85025; 87797; 96360; 96361; 96372; A9270; G0378; J7120

== ENCOUNTER 2018-08-10 15:59 | Outpatient (CLI) | payer OTHER ==
[2018-08-10] MEDS ORDERED: BETAMETHASONE 30 MG/5 ML VIAL IM ONE (16:11)
[2018-08-10 16:22] VITALS: BP 101/62
== END 2018-08-10 16:22 | disposition home or self-care (01) ==
LOC: FBP 15:59 → WFO 15:59
PROVIDERS: ATTEND Obstetrics & Gynecology
DX: O47.03 False labor before 37 completed weeks of gestation, third trimester (principal); Z3A.28 28 weeks gestation of pregnancy
CPT/HCPCS: 96372

== ENCOUNTER 2018-08-15 22:03 | Outpatient (CLI) | payer OTHER ==
[2018-08-15 22:25] VITALS: BP 107/62
[2018-08-15 22:57] LABS: BILIRUBIN,URINE NEGATIVE (NEGATIVE); GLUCOSE, URINE (UA) NEGATIVE (NEGATIVE); KETONES,URINE (UA) NEGATIVE (NEGATIVE); LEUKOCYTE ESTERASE, URINE SMALL (NEGATIVE); NITRITE,URINE NEGATIVE (NEGATIVE); OCCULT BLOOD,URINE NEGATIVE (NEGATIVE); PROTEIN,URINE NEGATIVE (NEGATIVE); UROBILINOGEN,URINE 0.2 (NORMAL) E.U./dL (NORMAL)
[2018-08-15 22:59] LABS: CLARITY,URINE CLEAR (CLEAR)
[2018-08-15 23:12] LABS: BACTERIA,URINE Many /HPF (None Seen); RBC,URINE 0-5 /HPF (0-5); SQUAMOUS EPITHELIAL CELL,UR MANY Squamous (<= Few); WBC CLUMPS,URINE PRESENT
[2018-08-15 23:37] LABS: BILIRUBIN,URINE NEGATIVE (NEGATIVE); GLUCOSE, URINE (UA) NEGATIVE (NEGATIVE); KETONES,URINE (UA) NEGATIVE (NEGATIVE); LEUKOCYTE ESTERASE, URINE NEGATIVE (NEGATIVE); NITRITE,URINE NEGATIVE (NEGATIVE); OCCULT BLOOD,URINE NEGATIVE (NEGATIVE); PROTEIN,URINE NEGATIVE (NEGATIVE); UROBILINOGEN,URINE 0.2 (NORMAL) E.U./dL (NORMAL)
[2018-08-15 23:45] LABS: CLARITY,URINE CLEAR (CLEAR)
[2018-08-15 23:46] LABS: BACTERIA,URINE None Seen /HPF (None Seen); RBC,URINE 0-5 /HPF (0-5); SQUAMOUS EPITHELIAL CELL,UR RARE Squamous (<= Few)
== END 2018-08-16 00:04 | disposition home or self-care (01) ==
LOC: WFO 22:03 → FBP 22:05 → WFO 08-16 00:04
PROVIDERS: ATTEND Obstetrics & Gynecology
DX: O26.893 Other specified pregnancy related conditions, third trimester (principal); R19.7 Diarrhea, unspecified; R25.2 Cramp and spasm; Z3A.29 29 weeks gestation of pregnancy
CPT/HCPCS: 81001; 81003; 87086; 99212

== ENCOUNTER 2018-08-17 15:41 | Outpatient (CLI) | payer OTHER | END 2018-08-17 15:42 | disposition home or self-care (01) | LOC: LAB.R 15:41 | PROVIDERS: ATTEND Obstetrics & Gynecology | DX: O60.00 Preterm labor without delivery, unspecified trimester (principal) | CPT/HCPCS: 82731 ==

== ENCOUNTER 2018-09-24 22:47 | Outpatient (CLI) | payer OTHER ==
[2018-09-24 23:05] VITALS: BP 107/64
[2018-09-25] MEDS ORDERED: ZOLPIDEM 5 MG TABLET PO ONE (01:15)
[2018-09-25 01:39] LABS: BILIRUBIN,URINE NEGATIVE (NEGATIVE); GLUCOSE, URINE (UA) 100 mg/dL (NEGATIVE); KETONES,URINE (UA) NEGATIVE (NEGATIVE); LEUKOCYTE ESTERASE, URINE NEGATIVE (NEGATIVE); NITRITE,URINE NEGATIVE (NEGATIVE); OCCULT BLOOD,URINE NEGATIVE (NEGATIVE); PROTEIN,URINE NEGATIVE (NEGATIVE); UROBILINOGEN,URINE 0.2 (NORMAL) E.U./dL (NORMAL)
[2018-09-25 01:45] LABS: BACTERIA,URINE None Seen /HPF (None Seen); CLARITY,URINE CLEAR (CLEAR); RBC,URINE 0-5 /HPF (0-5); SQUAMOUS EPITHELIAL CELL,UR RARE Squamous (<= Few)
--- NOTE | 2018-09-25 15:40 | PROVIDER PROGRESS NOTE ---
Subjective - Prog Note Date Prog Note Date: 09/25/18 Prog Note Time: 07:00 - Subjective Pt reports feeling: Improved Subjective: Ms. Roshan Muniz is a 18-year-old primigravida at 34 weeks 5 days gestation who reports uterine contractions that preclude asleep. She has no suspicion of leaking membranes. Patient has no signs or symptoms consistent with preeclampsia. Physical examination Uterus no contractions palpable normal resting tone External monitor strip baseline 140s moderate variability multiple accelerations no contractions only irritability Assessment uterine irritability not labor reactive NST. Plan patient given Ambien 10mg p.o. for therapeutic rest and then discharged home with instructions Objective - Lab Results Other Labs: Lab Results x24hrs 09/24/18 Range/Units 01:23 Urine Color YELLOW Urine Clarity CLEAR (CLEAR) Urine pH 6.0 (5.0-7.5) PH Ur Specific [place] >=1.030 H (1.002-1.030) Urine Protein NEGATIVE (NEGATIVE) mg/dL Urine Glucose (UA) 100 H (NEGATIVE) mg/dL Urine Ketones NEGATIVE (NEGATIVE) mg/dL Urine Occult Blood NEGATIVE (NEGATIVE) Urine Nitrite NEGATIVE (NEGATIVE) Urine Bilirubin NEGATIVE (NEGATIVE) Urine Urobilinogen 0.2 (NORMAL) (NORMAL) E.U./dL Ur Leukocyte Esterase NEGATIVE (NEGATIVE) Urine RBC 0-5 (0-5) /HPF Urine WBC 0-3 (0-5) /HPF Ur Squamous Epith Cells RARE Squamous (<= Few) Urine Bacteria None Seen (None Seen) /HPF
== END 2018-09-25 02:12 | disposition home or self-care (01) ==
LOC: WFO 22:47 → FBP 22:49 → WFO 09-25 02:12
PROVIDERS: ATTEND Obstetrics & Gynecology
DX: O99.89 Other specified diseases and conditions complicating pregnancy, childbirth and the puerperium (principal); R10.9 Unspecified abdominal pain; R51 Headache; R07.81 Pleurodynia
CPT/HCPCS: 81001; 99213; A9270

== ENCOUNTER 2018-10-27 05:11 | Inpatient (IN) | payer OTHER ==
--- NOTE | 2018-10-24 08:56 | PREOP HISTORY & PHYSICAL ---
DATE OF SERVICE: 10/27/2018 Physician: Oc Wilkes MD PRELIMINARY ANTICIPATED DATE FOR PROCEDURE: 10/27/2018 DIAGNOSES 1. A 39-plus week gestation. 2. Persistent breech presentation. 3. Declined external version. HISTORY OF PRESENT ILLNESS: Patient is a 18-year-old primigravida at 39 weeks 2 days' gestation and was noted by physical exam and ultrasound to be breech presentation at or about 36 weeks. She was counseled about possible external version, including risks and benefits, but declined and preferred to see if the fetus would naturally convert to vertex. Unfortunately this has not occurred. She was given information on risks and benefits of primary section and opted for planned section on 10/27/2018. She has had regular care at [facility]. Patient is AB positive, antibody screen negative, strep negative, HIV negative, RPR negative, hepatitis B surface antigen negative. One-hour glucose challenge normal at 97. Latest hemoglobin 12.0. Urine negative. Pap normal. PAST MEDICAL HISTORY: Patient denies chronic disease history inclusive of hypertension, diabetes, or cardiac problems. PAST SURGICAL HISTORY: None. ALLERGIES: NO KNOWN DRUG ALLERGIES. MEDICATIONS: vitamins and iron. SOCIAL HISTORY: Active duty member; to another active duty member. She is a [employer]. Denies drug, tobacco, or alcohol use. REVIEW OF SYSTEMS CONSTITUTIONAL: Negative. HEENT: Negative. CARDIAC: Negative. LUNGS: Negative. BREASTS: Negative except for fullness and tenderness. GASTROINTESTINAL: Negative. GENITOURINARY: No STI history. No discharge. No complaints of labor. MUSCULOSKELETAL: Negative. NEUROLOGIC: Negative. PSYCHIATRIC: Negative. RHEUMATOLOGY/LYMPHATICS: Denies easy bleeding tendencies. PHYSICAL EXAMINATION GENERAL: Well groomed, pleasant, cooperative. VITAL SIGNS: Posted. HEENT: Dentition in good repair. EOMI. Supple neck. No thyromegaly. LUNGS: Clear to auscultation. CARDIAC: Regular, no murmur. No gallop. BREASTS: Exam not done; but no reported lumps, discharge, or skin lesions. ABDOMEN: Soft, nontender. No hepatosplenomegaly. Gravid. UTERUS: Corey maneuvers and office ultrasound verifY breech presentation; at times mobile to back up transverse, but mostly to oblique. Estimated weight 7.5-8 pounds. EXTERNAL GENITALIA: No lesions. VAGINA: No blood or discharge. CERVIX: 50% effaced, closed. No evidence of leaking. External heart tracing pending. EXTREMITIES: Nonedematous. NEUROLOGIC: Grossly intact. PSYCHIATRIC: Appropriate. ADMISSION LABS: Pending. ASSESSMENT: Patient is a 22-nvml-leuf mother using reliable dating criteria. She has not spontaneously verted to vertex. At times, she is a back up transverse, which, if membranes rupture, could be potentially dangerous for prolapse. At this time, she is a candidate for section. PLAN 1. Admit on the morning of 10/27/2018. 2. Prophylactic Ancef 2 grams. 3. Patient to meet with Anesthesia the morning of surgery. 4. Primary lower segment transverse section. Note - immediately before the procedure, we will do an ultrasound in Labor and Delivery to confirm lie. Risks and benefits reviewed. Appropriate paperwork was signed. TD: 10/22/2018 16:32 CAROL
[~2018-10-27 05:11] MED LIST: LACTATED RINGERS 1,000 ML IV SCH
[2018-10-27] MEDS ORDERED: SODIUM CHLORIDE FLUSH 0.9% 10 ML SYRINGE IVP PRN ×2 (06:00→07:56)
[2018-10-27] MEDS ORDERED: CITRIC ACID/SODIUM CITRATE 15 ML UDC PO ONE ×2 (06:48→07:01)
[2018-10-27 06:54] LABS: BILIRUBIN,URINE NEGATIVE (NEGATIVE); GLUCOSE, URINE (UA) NEGATIVE (NEGATIVE); KETONES,URINE (UA) 40 mg/dL (NEGATIVE); LEUKOCYTE ESTERASE, URINE SMALL (NEGATIVE); NITRITE,URINE NEGATIVE (NEGATIVE); OCCULT BLOOD,URINE NEGATIVE (NEGATIVE); PROTEIN,URINE NEGATIVE (NEGATIVE); UROBILINOGEN,URINE 0.2 (NORMAL) E.U./dL (NORMAL)
[2018-10-27 06:55] LABS: BASOPHILS % (AUTO) 0.2 %; EOSINOPHILS % (AUTO) 0.6 %; HGB - HEMOGLOBIN 13.2 g/dL (12.0-16.0); LYMPHOCYTES # (AUTO) 1.6 10^3/uL (1.5-3.5); LYMPHOCYTES % (AUTO) 22.9 %; MEAN CORPUSCULAR HEMOGLOBIN 31.1 pg (27.0-31.0); MEAN CORPUSCULAR HGB CONC 33.8 g/dL (32.0-36.0); MEAN PLATELET VOLUME 8.6 fL (7.9-10.8); MONOCYTES # (AUTO) 0.4 10^3/uL (0.0-1.0); MONOCYTES % (AUTO) 6.2 %; NEUTROPHILS # (AUTO) 4.9 10^3/uL (1.5-6.6); NEUTROPHILS % (AUTO) 70.1 %; PLT - PLATELET COUNT 169 10^3/uL (130-450); RED BLOOD COUNT 4.24 10^6/uL (4.20-5.40); RED CELL DISTRIBUTION WIDTH 14.3 % (12.0-15.0)
--- NOTE | 2018-10-27 06:58 | ANESTHESIA ---
Pre-Anesthesia VS, & Labs - Diagnosis breech presentation - Procedure c section Vital Signs: Temp Pulse Resp BP Pulse Ox 36.6 C 96 18 111/69 100 10/27/18 06:04 10/27/18 06:04 10/27/18 06:04 10/27/18 06:04 10/27/18 06:04 Height 5 ft 2 in Weight (kg) 79.832 kg Body Mass Index 27.1 - NPO >8 hours - Is Patient ?: Yes Home Medications and Allergies Active Medications Famotidine (Pepcid) 20 mg PO BID MITCHELL Lactated Ringer's (Lr) 1,000 mls @ 100 mls/hr IV .Q10H MITCHELL Cefazolin Sodium 2 gm/ Sodium (Chloride) 100 mls @ 200 mls/hr IV ONCE MITCHELL Stop: 10/27/18 23:00 Polyethylene Glycol (Miralax) 17 gm PO DAILY MITCHELL Sodium Chloride (Normal Saline Flush 0.9%) 10 ml IVP PRN PRN PRN Reason: NEEDED PER PROVIDER ORDERS Sodium Chloride (Normal Saline Flush 0.9%) 10 ml IVP 0100,0900,1700 [facility] Allergies/Adverse Reactions: Allergies Allergy/AdvReac Type Severity Reaction Status Date / Time No Known Drug Allergies Allergy Verified 05/12/18 16:54 Anes History & Medical History - Anesthetic History Anesthesia Complications: reports: No previous complications Family history of Anesthesia Complications: Denies Family history of Malignant Hyperthermia: Denies - Medical History Smoking Status: Never smoker Exam General: Alert, Oriented x3, Cooperative, No acute distress Dental: WNL Mouth Openin Fingerbreadth Mallampati classification: II Thyromental Distance: 4-6 cm Respiratory: Lungs clear, Normal breath sounds, No respiratory distress, No accessory muscle use Cardiovascular: Regular rate, Normal S1, Normal S2, No murmurs Mental/Cognitive Status: Alert/Oriented X3, Normal for patient Plan Anesthesia Type: Spinal Consent for Procedure(s) Verified and Reviewed: No Code Status: Attempt Resuscitation ASA classification: 2-Mild systemic disease Is this case an emergency?: No
[2018-10-27 06:59] LABS: CLARITY,URINE HAZY (CLEAR)
[2018-10-27 07:22] LABS: BACTERIA,URINE Few /HPF (None Seen); RBC,URINE 0-5 /HPF (0-5); SQUAMOUS EPITHELIAL CELL,UR MOD Squamous (<= Few)
[2018-10-27] MEDS ORDERED: ceFAZolin 2 GM in SODIUM CHLORIDE 0.9% MINIBAG 100 ML IV SCH (07:30)
[2018-10-27] MEDS ORDERED: LACTATED RINGERS 1,000 ML IV ONE ×2 (07:41→09:00)
--- NOTE | 2018-10-27 07:52 | OPERATIVE REPORT ---
Operative Report - General Admit Date: 10/27/18 Planned Procedure: Primary lower segment transverse section Pre-Op Diagnosis: Breech presentation, 39+ week gestation Procedure Performed: Primary lower segment transverse section Post Op Diagnosis: Same as above - Procedure Note Primary Surgeon: Oc Wilkes MD, FACOG, FICS Secondary Surgeon: Deejay Lowry, Certified nurse phosphoric acid supervisor, AFNP Anesthesia Technique: Spinal Pathology: None IV Fluids (mL): 1,000 Estimated Blood Loss (mL): 450 Urine Output (mL): 160 Drain/Tube Type: Other (Smith catheter) Complications: None. - Other Other Information/Narrative: I met the patient and her earlier in the day to discuss the mechanics risks and benefits of primary section. She was certain of her decision because of breech fetus . She will accept transfusion if required. Informed consent paperwork was signed. Just prior to surgery should confirmed breech by US. Patient was placed on the OR table in the sitting position for administration of spinal anesthesia. Spinal was uneventfully placed. Patient was then moved to the supine. Smith catheter was uneventfully placed with clear urine return. heart tones were confirmed. Patient was prepped and draped in the customary sterile fashion. Timeout briefing was done per protocol. We c onfirmed good anesthesia coverage through the level T10. Pfannenstiel incision was used to uneventfully open the abdomen. Upon abdominal cavity entry there was no significant adhesive disease. Press Officer assess the position of the fetus size and placental position. Curvilinear hysterotomy was then executed with scalpel. Upon entry into the amniotic cavity clear fluid spilled forth. Wound was gently widened with finger traction. Press Officer reached into the uterine cavity and secured breech. With fundal pressure from the enrichment assistant the breech was uneventfully delivered through the hysterotomy and laparotomy. Marcenaue maneuver done to facilitate the delivery of head. There is no difficulty in delivery of the shoulders. Cord was doubly clamped and transected. Infant was handed to the waiting pediatric nursing team. Uterus was exteriorized and inspected. The hysterotomy is closed in 2 parts first with a interlock stitch of 0 Vicryl followed by an imbricating stitch of 0 5-0 Vicryl in a cardinal fashion. Pelvis was inspected for bleeding vessels. The abdominal cavity was doubly lavaged with warm normal saline. Uterus was placed back into the abdominal cavity. All operative sites were inspected. Abdominal peritoneum was closed with running stitch of 2-0 Vicryl. Rectus muscles were tacked back together with interrupted stitches of 0 Vicryl. Fascial incision was closed with a running stitch of 0 Vicryl. Subcutaneous space was closed with interrupted sutures of 2-0 chromic. Skin was closed with 4-0 Vicryl in a subcuticular fashion. Wound VAC was placed. The final sponge needle and instrument counts were confirmed as correct. FINDINGS 1. The external exam genitalia were examined and no concerning lesions were discovered. 2. The abdomen was obese with truncal obesity. 3. The uterus had a normal contour without evidence of fibroids. The internal cavity had no septum or myometrial defects. 4. The placenta was removed intact with three-vessel cord. There was no cord entanglement. There is no evidence of infection or meconium. Cord blood sample was taken. 5. Ovaries were of normal size and mobile. 6. A living Male was born at 0830 hours weighing 3570 grams. Apgars 6/9. Arterial pH 7.236, base excess -6.5; venous pH 7.306, base excess -5.7. There was no obvious congenital anomalies or trauma.
[2018-10-27] MEDS ORDERED: oxyCODONE 5 MG TABLET PO PRN (07:56)
[2018-10-27] MEDS ORDERED: ONDANSETRON 4 MG/2 ML VIAL IVP PRN ×2 (07:56→11:32)
[2018-10-27] MEDS ORDERED: diphenhydrAMINE 25 MG CAPSULE PO PRN (07:56)
[2018-10-27] MEDS ORDERED: HYDROCORTISONE/PRAMOXINE 10 GM PR PRN (07:56)
[2018-10-27] MEDS ORDERED: ZOLPIDEM 5 MG TABLET PO PRN (07:56)
[2018-10-27] MEDS ORDERED: OXYTOCIN/SODIUM CHLORIDE 500 ML IV PRN (08:00)
[2018-10-27] MEDS ORDERED: SODIUM CHLORIDE FLUSH 0.9% 10 ML SYRINGE IVP SCH (09:00)
[2018-10-27] MEDS ORDERED: OXYTOCIN 10 UNIT/ML VIAL IV ONE (09:05)
[2018-10-27] MEDS ORDERED: ceFAZolin 2 GM/50 ML 2 GM/50 ML BAG IV ONE (09:05)
[2018-10-27] MEDS ORDERED: EPINEPHrine 1 MG/ML VIAL IV ONE (09:05)
[2018-10-27] MEDS ORDERED: MORPHINE PF 5 MG/10 ML AMP EP ONE (09:05)
[2018-10-27] MEDS ORDERED: METHYLERGONOVINE 0.2 MG/ML AMP IVP ONE (09:05)
[2018-10-27] MEDS: LACTATED RINGERS 1,000 ML IV SCH ×3 (10:56→21:53)
[2018-10-27] MEDS ORDERED: PROMETHAZINE INJ 25 MG in SODIUM CHLORIDE 0.9% 50 ML IV PRN (11:32)
[2018-10-27] MEDS ORDERED: SCOPOLAMINE PATCH TOP SCH (12:00)
[2018-10-27] MEDS: SODIUM CHLORIDE FLUSH 0.9% 10 ML SYRINGE IVP SCH ×2 (12:05→19:17)
[2018-10-27] MEDS: ACETAMINOPHEN 500 MG TABLET PO SCH ×2 (19:16→19:18)
[2018-10-27] MEDS: IBUPROFEN 600 MG TABLET PO SCH ×3 (19:17→21:52)
[2018-10-27] MEDS: SIMETHICONE CHEW 80 MG TABLET PO SCH (19:17)
[2018-10-27] MEDS: POLYETHYLENE GLYCOL 3350 17 GM PACKET PO SCH (19:17)
[2018-10-28] MEDS: FAMOTIDINE 20 MG TABLET PO SCH ×2 (03:49→09:56)
[2018-10-28] MEDS: ACETAMINOPHEN 500 MG TABLET PO SCH ×3 (03:49→18:45)
[2018-10-28] MEDS: SIMETHICONE CHEW 80 MG TABLET PO SCH ×4 (03:49→21:57)
[2018-10-28] MEDS: IBUPROFEN 600 MG TABLET PO SCH ×4 (03:52→21:57)
[2018-10-28] MEDS: SODIUM CHLORIDE FLUSH 0.9% 10 ML SYRINGE IVP SCH ×3 (04:02→18:46)
[2018-10-28 06:18] LABS: BASOPHILS % (AUTO) 0.2 %; EOSINOPHILS % (AUTO) 0.4 %; HGB - HEMOGLOBIN 10.4 g/dL (12.0-16.0); LYMPHOCYTES # (AUTO) 1.3 10^3/uL (1.5-3.5); LYMPHOCYTES % (AUTO) 16.2 %; MEAN CORPUSCULAR HEMOGLOBIN 30.9 pg (27.0-31.0); MEAN CORPUSCULAR HGB CONC 33.1 g/dL (32.0-36.0); MEAN CORPUSCULAR VOLUME 93.5 fL (81.0-99.0); MEAN PLATELET VOLUME 8.1 fL (7.9-10.8); MONOCYTES # (AUTO) 0.6 10^3/uL (0.0-1.0); MONOCYTES % (AUTO) 7.8 %; NEUTROPHILS # (AUTO) 5.9 10^3/uL (1.5-6.6); NEUTROPHILS % (AUTO) 75.4 %; PLT - PLATELET COUNT 151 10^3/uL (130-450); RED BLOOD COUNT 3.36 10^6/uL (4.20-5.40); RED CELL DISTRIBUTION WIDTH 14.8 % (12.0-15.0); WHITE BLOOD COUNT 7.8 x10^3/uL (4.8-10.8)
[2018-10-28] MEDS: POLYETHYLENE GLYCOL 3350 17 GM PACKET PO SCH (09:55)
[2018-10-28] MEDS: LACTATED RINGERS 1,000 ML IV SCH (17:20)
[2018-10-29] MEDS: ACETAMINOPHEN 500 MG TABLET PO SCH ×3 (02:39→18:28)
[2018-10-29] MEDS: IBUPROFEN 600 MG TABLET PO SCH ×3 (03:39→18:28)
[2018-10-29] MEDS: FAMOTIDINE 20 MG TABLET PO SCH ×2 (08:04→10:23)
--- NOTE | 2018-10-29 08:56 | Discharge Plan ---
Discharge Plan Disposition: 01 Home, Self Care Condition: Good Diet: Regular Activity Restrictions: Activity as Tolerated Shower Restrictions: No Driving Restrictions: No No Smoking: If you smoke, Please STOP! Call for help. Follow-up with: JUAN MAO MD [Primary Care Provider] - Oc Wilkes MD [Provider Admit Priv/Credential] -
[2018-10-29 09:59] VITALS: BP 104/60
--- NOTE | 2018-10-29 09:59 | DISCHARGE SUMMARY ---
Physician: Oc Wilkes MD DATE OF ADMISSION: 10/27/2018 DATE OF DISCHARGE: 10/29/2018 DIAGNOSES 1. A 39-week gestation. 2. Persistent breech presentation. 3. Declined external version. PROCEDURE: Primary lower segment transverse section. HISTORY: The patient is a 18-year-old primigravida at 39 weeks 2 days gestation, and was no calvin to be breech at about 36 weeks' gestation. She was counseled about a potential external version versus possible , and declined version. She has been checked every week, and the presentati on has remained breech. She has had regular care at [facility]. Blood type A positive, antibody screen negative. Strep negative, HIV negative, RPR negative, hepatitis B s urface antigen negative. One-hour glucose 97. The patient denies chronic disease history. Reference typewritten H and P. HOSPITAL COURSE: The patient was admitted and underwent an uneventful primary lower segment transver se versus section. Primary section yielded a living male infant weighing 3570 gram s, and scoring Apgars of 6/9. Arterial cord pH 7.236, base excess -6.5; venous pH 7.306, base excess -7.1. Both mother and infant did well. Total blood loss of 450. The patient was taken to the [facility] very room in stable condition. The patient recovered well, rapidly advancing to full diet and activity. Preoperative hemoglobin 13. 2, postoperative 10.4. The patient nursed well, and by postoperative day 2, strongly desired dischar ge home. Prior to discharge, patient was given additional nursing coaching. Warning sign and callback instruc tions were reviewed. FOLLOWUP: She will be seen in seven days for removal of wound VAC. DISCHARGE MEDICATIONS 1. Motrin 600 every 6 hours. 2. Sabula 325/5 one every 4 hours p.r.n. 3. Colace 250 mg b.i.d. 4. vitamins with iron. TD: 10/29/2018 08:51
[2018-10-29] MEDS: POLYETHYLENE GLYCOL 3350 17 GM PACKET PO SCH (10:23)
[2018-10-29] MEDS: SIMETHICONE CHEW 80 MG TABLET PO SCH ×2 (10:30→18:28)
== END 2018-10-29 17:30 | disposition home or self-care (01) | DRG 788 ==
LOC: FBP 05:11
PROVIDERS: ADMIT Obstetrics & Gynecology; ATTEND Obstetrics & Gynecology
PROC: 10D00Z1 Extraction of Products of Conception, Low, Open Approach (ICD-10-PCS; principal; 2018-10-27 07:30)
DX: O32.1XX0 Maternal care for breech presentation, not applicable or unspecified (principal); Z3A.39 39 weeks gestation of pregnancy; Z37.0 Single live birth; O99.214 Obesity complicating childbirth; E66.9 Obesity, unspecified
CPT/HCPCS: 36415; 81001; 82803; 85025; 86850; 86900; 86901

== ENCOUNTER 2019-06-12 09:08 | Emergency (ER) | payer OTHER ==
[2019-06-12 09:15] VITALS: BP 117/69
[2019-06-12] MEDS ORDERED: CHERRY SYRUP 10 ML UDC PO ONE (09:32)
[2019-06-12] MEDS ORDERED: DEXAMETHASONE 10 MG/ML VIAL PO STA (09:32)
[2019-06-12] MEDS ORDERED: IBUPROFEN 800 MG TABLET PO STA (09:32)
[2019-06-12] MEDS ORDERED: BACLOFEN 10 MG TABLET PO STA (09:32)
--- NOTE | 2019-06-12 09:33 | ED Physician Documentation ---
PD HPI BACK PAIN - Stated complaint Stated Complaint: LOWER BACK PX - Chief complaint Chief Complaint: Back Pain - History obtained from History obtained from: Patient - History of Present Illness Timing - onset: Last night Timing - duration: Days (1) Timing - details: Gradual onset Pain level max: 7 Pain level now: 5 Location: Lower, Right Quality: Pain, Spasm, Similar to prior episodes Associated symptoms: No: Fever, Weakness, Numbness, Incontinent of urine, Unable to urinate, Hematuria, Incontinent of stool Improves with: Rest Worsened by: Movement, Lifting Contributing factors: Other (Was giving her child a bath, he is 7-month-old) Similar symptoms before: Other (Has had similar episodes in the past.) Recently seen: Not recently seen Review of Systems Constitutional: denies: Fever, Chills Cardiac: denies: Chest pain / pressure Respiratory: denies: Dyspnea, Cough GI: denies: Nausea, Vomiting : denies: Dysuria, Frequency, Hesitancy, Unable to Void, Incontinent, Hematuria, Now EGA Skin: denies: Rash Musculoskeletal: denies: Neck pain PD PAST MEDICAL HISTORY - Past Medical History Past Medical History: No - Past Surgical History Past Surgical History: No - Present Medications Home Medications: Ambulatory Orders Medication Instructions Recorded Confirmed Baclofen 5 mg PO Q8H PRN #20 tablet 06/12/19 Ibuprofen [Motrin] 800 mg PO Q8H PRN #30 tablet 06/12/19 Pnv95/Ferrous Fumarate/FA 06/12/19 [ Vitamins Tablet] predniSONE [Prednisone] 40 mg PO DAILY #10 tablet 06/12/19 - Allergies Allergies/Adverse Reactions: Allergies Allergy/AdvReac Type Severity Reaction Status Date / Time No Known Drug Allergies Allergy Verified 06/12/19 09:14 - Social History Does the pt smoke?: No Smoking Status: Never smoker Does the pt drink ETOH?: No Does the pt have substance abuse?: No - Immunizations Immunizations are current?: Yes - POLST Patient has POLST: No PD ED PE NORMAL - Vitals Vital signs reviewed: Yes - General General: Alert and oriented X 3, No acute distress - HEENT HEENT: Moist mucous membranes - Neck Neck: Supple, no meningeal sign - Cardiac Cardiac: RRR - Respiratory Respiratory: No respiratory distress, Clear bilaterally - Abdomen Abdomen: Soft, Non tender, Non distended - Back Back: No spinal TTP, Other (No midline Tenderness to palpation. No step-off or deformity.) - Derm Derm: Warm and dry - Extremities Extremities: No deformity, No tenderness to palpate, Other (Normal bilateral lower extremity patellar and ankle jerk reflexes. Normal great toe extension bilaterally. no saddle anesthesia) - Neuro Neuro: Alert and oriented X 3, No motor deficit, No sensory deficit - Psych Psych: Normal mood, Normal affect Results - Vitals Vitals: Vital Signs - 24 hr 06/12/19 09:10 Temperature 36 C L Heart Rate 65 Respiratory 18 Rate Blood Pressure 117/69 O2 Saturation 100 Oxygen O2 Source Room air PD MEDICAL DECISION MAKING - ED course Complexity details: considered differential (No cauda equina, no spinal epidural abscess, no fracture, no aortic dissection or evidence of aneursym rupture), d/w patient ED course: 18-year-old female with sciatica radiating down the right leg. No loss of bowel or bladder control. She is breast-feeding a 7-month old child. Will place on anti-inflammatories, steroids and muscle relaxants. No evidence of cauda equina, epidural abscess. Patient counseled regarding signs and symptoms for which I believe and urgent re-evaluation would be necessary. Patient with good understanding of and agreement to plan and is comfortable going home at this time This document was made in part using voice recognition software. While efforts are made to proofread this document, sound alike and grammatical errors may occur. Departure - Departure Disposition: 01 Home, Self Care Clinical Impression: Sciatica of right side Condition: Good Instructions: ED Sciatica Follow-Up: JUAN MAO MD [Primary Care Provider] - Within 1 week Prescriptions: Baclofen 5 mg PO Q8H PRN #20 tablet PRN Reason: back spasm Ibuprofen [Motrin] 800 mg PO Q8H PRN #30 tablet PRN Reason: PAIN &/OR FEVER predniSONE [Prednisone] 40 mg PO DAILY #10 tablet Comments: Use the medications as prescribed. Return if you worsen. Follow-up with your doctor for further care. This may take a week or 2 to fully improve. Do not drive or operate heavy machinery while taking the baclofen
== END 2019-06-12 09:53 | disposition home or self-care (01) ==
LOC: ED 09:08
DX: M54.31 Sciatica, right side (principal)
CPT/HCPCS: 99283; 99284; A9270

== ENCOUNTER 2019-06-15 08:04 | Emergency (ER) | payer OTHER ==
[2019-06-15 08:39] LABS: HCG UR QUAL NEGATIVE
[2019-06-15] MEDS ORDERED: CHERRY SYRUP 10 ML UDC PO ONE (08:58)
[2019-06-15] MEDS ORDERED: DEXAMETHASONE 10 MG/ML VIAL PO STA (08:58)
[2019-06-15] MEDS ORDERED: KETOROLAC 60 MG/2 ML VIAL IM STA (08:59)
--- NOTE | 2019-06-15 09:01 | ED Physician Documentation ---
PD HPI BACK PAIN - Stated complaint Stated Complaint: BACK PX - Chief complaint Chief Complaint: Back Pain - History obtained from History obtained from: Patient - History of Present Illness Timing - onset: How many days ago (4) Timing - duration: Days (4) Timing - details: Gradual onset, Still present Location: Lower, Right, Left Quality: Pain, Spasm, Sharp, Similar to prior episodes Associated symptoms: No: Fever, Weakness, Numbness, Incontinent of urine, Unable to urinate, Hematuria, Incontinent of stool Improves with: Rest, Position Worsened by: Movement Contributing factors: Lifting Similar symptoms before: Diagnosis (sciatica) Recently seen: Emergency Dept - Additional information Additional information: 18-year-old female who is nursing a 7-month-old infant that weighs 23 pounds has developed lower back pain. She has pain radiating down both legs and she has no issue with incontinence or perineal anesthesia.She was seen in the emergency department and provided prednisone and baclofen and ibuprofen and these medications do not seem to have helped.The patient states that her is taking formula as well as breast milk. Review of Systems Constitutional: denies: Fever Eyes: denies: Decreased vision Ears: denies: Ear pain Nose: denies: Congestion Throat: denies: Sore throat Cardiac: denies: Chest pain / pressure, Palpitations Respiratory: denies: Dyspnea, Cough GI: denies: Abdominal Pain, Nausea, Vomiting : denies: Dysuria, Frequency Skin: denies: Rash Musculoskeletal: reports: Back pain, Extremity pain. denies: Neck pain Neurologic: denies: Generalized weakness, Focal weakness, Numbness PD PAST MEDICAL HISTORY - Past Medical History Past Medical History: No - Past Surgical History Past Surgical History: No - Present Medications Home Medications: Ambulatory Orders Medication Instructions Recorded Confirmed Baclofen 5 mg PO Q8H PRN #20 tablet 06/12/19 Ibuprofen [Motrin] 800 mg PO Q8H PRN #30 tablet 06/12/19 Pnv95/Ferrous Fumarate/FA 06/12/19 [ Vitamins Tablet] predniSONE [Prednisone] 40 mg PO DAILY #10 tablet 06/12/19 Cyclobenzaprine [Flexeril] 10 mg PO TID PRN #20 tablet 06/15/19 Hydrocodone/Acetaminophen 1 - 2 each PO Q6H PRN #14 tablet 06/15/19 [Hydrocodon-Acetaminophen 5-325] - Allergies Allergies/Adverse Reactions: Allergies Allergy/AdvReac Type Severity Reaction Status Date / Time No Known Drug Allergies Allergy Verified 06/15/19 08:11 - Social History Does the pt smoke?: No Smoking Status: Never smoker Does the pt drink ETOH?: No Does the pt have substance abuse?: No - Immunizations Immunizations are current?: Yes - POLST Patient has POLST: No PD ED PE NORMAL - Vitals Vital signs reviewed: Yes (Normal) - General General: Alert and oriented X 3, No acute distress, Well developed/nourished - HEENT HEENT: Atraumatic, PERRL, EOMI - Neck Neck: Supple, no meningeal sign, No bony TTP - Respiratory Respiratory: No respiratory distress - Back Back: No CVA TTP, No spinal TTP, Other (There is tenderness to the paraspinous muscles of the lower lumbar spine extending into the sciatic notch bilaterally.) - Derm Derm: Normal color, Warm and dry, No rash - Extremities Extremities: No deformity, No edema, Other (Normal dorsiflexion bilaterally with good strength.) - Neuro Neuro: Alert and oriented X 3, voice pathologist 2-12 intact, No motor deficit, No sensory deficit, Normal speech Eye Opening: Spontaneous Motor: Obeys Commands Verbal: Oriented GCS Score: 15 - Psych Psych: Normal mood, Normal affect Results - Vitals Vitals: Vital Signs - 24 hr 06/15/19 08:09 Temperature 35.7 C L Heart Rate 74 Respiratory 16 Rate Blood Pressure 114/65 O2 Saturation 98 Oxygen O2 Source Room air - Labs Labs: Laboratory Tests 06/15/19 08:25 Ur Specific [place] >=1.030 H Urine HCG, Qual NEGATIVE PD MEDICAL DECISION MAKING - ED course Complexity details: considered differential, d/w patient ED course: 18-year-old female carrying a 23 pound has not had relief with anti- inflammatory and prednisone. Here in the emergency department she is administered dexamethasone 10 mg orally and we will put her on a course of hydrocodone and Flexeril. She is instructed to ice and stretch and resume physical therapy. Departure - Departure Disposition: 01 Home, Self Care Clinical Impression: Sciatica Qualifiers: Laterality: bilateral Qualified Code(s): M54.31 - Sciatica, right side Condition: Stable Instructions: ED Sciatica Follow-Up: JUAN MAO MD [Primary Care Provider] - Prescriptions: Cyclobenzaprine [Flexeril] 10 mg PO TID PRN #20 tablet PRN Reason: Spasms Hydrocodone/Acetaminophen [Hydrocodon-Acetaminophen 5-325] 1 - 2 each PO Q6H PRN #14 tablet PRN Reason: pain
[2019-06-15 09:20] LABS: BILIRUBIN,URINE NEGATIVE (NEGATIVE); GLUCOSE, URINE (UA) NEGATIVE (NEGATIVE); KETONES,URINE (UA) NEGATIVE (NEGATIVE); LEUKOCYTE ESTERASE, URINE NEGATIVE (NEGATIVE); NITRITE,URINE NEGATIVE (NEGATIVE); OCCULT BLOOD,URINE NEGATIVE (NEGATIVE); PROTEIN,URINE NEGATIVE (NEGATIVE); UROBILINOGEN,URINE 0.2 (NORMAL) E.U./dL (NORMAL)
[2019-06-15 09:22] LABS: CLARITY,URINE CLEAR (CLEAR)
[2019-06-15 09:52] VITALS: BP 117/69
== END 2019-06-15 09:30 | disposition home or self-care (01) ==
LOC: ED 08:04
DX: M54.31 Sciatica, right side (principal)
CPT/HCPCS: 81003; 81025; 96372; 99283; A9270; 81001; 87086

== ENCOUNTER 2019-06-20 15:19 | Emergency (ER) | payer OTHER ==
[2019-06-20 15:30] VITALS: BP 112/69
--- NOTE | 2019-06-20 16:24 | ED Physician Documentation ---
PD HPI BACK PAIN - Stated complaint Stated Complaint: BACK PX - Chief complaint Chief Complaint: Back Pain - History obtained from History obtained from: Patient - History of Present Illness Timing - onset: How many weeks ago (2) Timing - duration: Weeks (2) Timing - details: Gradual onset, Still present Location: Lower, Right, Left Quality: Pain, Spasm Associated symptoms: No: Fever, Weakness, Numbness, Incontinent of urine Worsened by: Movement, Lifting (has 7 month old child to lift and care for) Contributing factors: Lifting, Twisting. No: Trauma Similar symptoms before: Diagnosis (had low back pain the end of her and has continued post , worse the past couple weeks.) Recently seen: Clinic (seen at PMD clinic and had Rx Baclofen, tylenol. Rx from ER for norco and flexeril. She says she feels lightheaded and actually more stiff with the flexeril, and the norco not helping.), Emergency Dept Review of Systems Constitutional: denies: Fever, Chills, Myalgias Cardiac: denies: Chest pain / pressure Respiratory: denies: Dyspnea GI: denies: Abdominal Pain, Nausea, Vomiting, Diarrhea : denies: Dysuria, Frequency Skin: denies: Rash Musculoskeletal: reports: Back pain (lower back both sides, radiating to upper back and scapular area on right. Some pain down legs, more on left. No leg weakness nor numbness.). denies: Neck pain Neurologic: reports: Numbness (has had some numbness at labia on left since her delivery post epidural.). denies: Focal weakness PD PAST MEDICAL HISTORY - Past Medical History Past Medical History: No - Past Surgical History Past Surgical History: No - Present Medications Home Medications: Ambulatory Orders Medication Instructions Recorded Confirmed Baclofen 5 mg PO Q8H PRN #20 tablet 06/12/19 Ibuprofen [Motrin] 800 mg PO Q8H PRN #30 tablet 06/12/19 Pnv95/Ferrous Fumarate/FA 06/12/19 [ Vitamins Tablet] predniSONE [Prednisone] 40 mg PO DAILY #10 tablet 06/12/19 Cyclobenzaprine [Flexeril] 10 mg PO TID PRN #20 tablet 06/15/19 Hydrocodone/Acetaminophen 1 - 2 each PO Q6H PRN #14 tablet 06/15/19 [Hydrocodon-Acetaminophen 5-325] Naproxen 375 mg PO BID #20 tablet 06/20/19 Oxycodone HCl/Acetaminophen 1 each PO Q6H PRN #20 tablet 06/20/19 [Percocet 7.5-325 mg Tablet] Tizanidine HCl 4 mg PO TID PRN #25 capsule 06/20/19 - Allergies Allergies/Adverse Reactions: Allergies Allergy/AdvReac Type Severity Reaction Status Date / Time No Known Drug Allergies Allergy Verified 06/20/19 15:30 - Social History Does the pt smoke?: No Smoking Status: Never smoker Does the pt drink ETOH?: No Does the pt have substance abuse?: No - Immunizations Immunizations are current?: Yes - POLST Patient has POLST: No PD ED PE NORMAL - Vitals Vital signs reviewed: Yes - General General: Alert and oriented X 3, Well developed/nourished, Other (some guarding ROM of the lower back. No rash nor sores on back. ) - Abdomen Abdomen: Soft, Non tender - Back Back: No CVA TTP - Derm Derm: Normal color, Warm and dry - Extremities Extremities: No edema, No calf tenderness / cord, Other (tender bilateral SI a reas and lower lumbar) - Neuro Neuro: Alert and oriented X 3, No motor deficit, No sensory deficit, Other (normal knee reflexes) Results - Vitals Vitals: Vital Signs - 24 hr 06/20/19 15:27 Temperature 36.0 C L Heart Rate 74 Respiratory 19 Rate Blood Pressure 112/69 O2 Saturation 100 Oxygen O2 Source Room air PD MEDICAL DECISION MAKING - ED course Complexity details: reviewed old records, considered differential, d/w patient Departure - Departure Disposition: 01 Home, Self Care Clinical Impression: Low back strain Qualifiers: Encounter type: initial encounter Qualified Code(s): S39.012A - Strain of muscle, fascia and tendon of lower back, initial encounter Sciatica Qualifiers: Laterality: unspecified laterality Qualified Code(s): M54.30 - Sciatica, unspecified side Condition: Stable Record reviewed to determine appropriate education?: Yes Instructions: ED Sprain Strain Lumbar Follow-Up: JUAN MAO MD [Primary Care Provider] - Prescriptions: Naproxen 375 mg PO BID #20 tablet Oxycodone HCl/Acetaminophen [Percocet 7.5-325 mg Tablet] 1 each PO Q6H PRN #20 tablet PRN Reason: Pain Tizanidine HCl 4 mg PO TID PRN #25 capsule PRN Reason: Spasms Comments: Heat and gentle stretching for the back. Initiate physical therapy once it goes through the approval. Finish the prednisone 2 tablets daily for the next few days. Add naproxen anti- inflammatory twice daily. Stop the cyclobenzaprine since it made you feel funny. You could try tizanidine muscle relaxant instead. Try the Percocet if needed for pain instead see if it is more effective. Follow-up with your primary care over the next several days. Discharge Date/Time: 06/20/19 17:32
[2019-06-20] MEDS ORDERED: KETOROLAC 30 MG/ML VIAL IM STA (16:58)
[2019-06-20] MEDS ORDERED: oxyCODONE 5 MG TABLET PO STA (16:58)
== END 2019-06-20 17:32 | disposition home or self-care (01) ==
LOC: ED 15:19
DX: S39.012A Strain of muscle, fascia and tendon of lower back, initial encounter (principal); X58.XXXA Exposure to other specified factors, initial encounter; M54.32 Sciatica, left side; M54.31 Sciatica, right side
CPT/HCPCS: 96372; 99283; 99284; A9270

== ENCOUNTER 2019-10-11 14:45 | Emergency (ER) | payer OTHER ==
--- NOTE | 2019-10-11 15:45 | ED Physician Documentation ---
PD HPI NVD - Stated complaint Stated Complaint: ABD PX, N/V/D - Chief complaint Chief Complaint: Abd Pain - History obtained from History obtained from: Patient - History of Present Illness Timing - onset: Yesterday (She is started to have some cramps and pains in the right lower quadrant yesterday. These have persisted on and off since that time and are sharp and brief. Today she also had nausea with 2-3 episodes of vomiting and 3 episodes of watery diarrhea over the past few hours. She still feels somewhat nauseous. She is not aware of any unusual foods. She denies any head cold symptoms but does feel chilled and achy. She has not noticed any dysuria. She has not had any vaginal bleeding and has not had a period for couple of years since before she was and then had a Nexplanon . She is sexually active. No vaginal discharge.) Timing - duration: Days (1) Timing - details: Abrupt onset, Intermittant Associated symptoms: Abdominal pain (cramping intermittent RLQ pains since yesterda. Upper abd discomfort since vomiting.). No: Fever Contributing factors: No: Sick contact, Bad food, Recent antibiotics Worsened by: Eating Similar symptoms before: Has not had sx before Recently seen: Not recently seen Review of Systems Constitutional: denies: Fever, Chills, Myalgias Nose: denies: Rhinorrhea / runny nose, Congestion Throat: denies: Sore throat Respiratory: denies: Cough GI: reports: Abdominal Pain (intermittently RLQ since childbirth/Csec a year ago. Has Nexplanon, so no periods since delivery.), Nausea, Vomiting, Diarrhea. denies: Abdominal Swelling : denies: Dysuria, Frequency, Discharge, Vaginal bleeding Musculoskeletal: denies: Neck pain, Back pain PD PAST MEDICAL HISTORY - Past Medical History Cardiovascular: None Respiratory: None Neuro: None Endocrine/Autoimmune: None [employer]: Other - Past Surgical History Past Surgical History: No - Present Medications Home Medications: Ambulatory Orders Medication Instructions Recorded Confirmed Baclofen 5 mg PO Q8H PRN #20 tablet 06/12/19 Ibuprofen [Motrin] 800 mg PO Q8H PRN #30 tablet 06/12/19 Pnv No.95/Ferrous Fum/Folic AC 06/12/19 [ Vitamins Tablet] predniSONE [Prednisone] 40 mg PO DAILY #10 tablet 06/12/19 Cyclobenzaprine [Flexeril] 10 mg PO TID PRN #20 tablet 06/15/19 Hydrocodone/Acetaminophen 1 - 2 each PO Q6H PRN #14 tablet 06/15/19 [Hydrocodon-Acetaminophen 5-325] Naproxen 375 mg PO BID #20 tablet 06/20/19 Oxycodone HCl/Acetaminophen 1 each PO Q6H PRN #20 tablet 06/20/19 [Percocet 7.5-325 mg Tablet] Tizanidine HCl 4 mg PO TID PRN #25 capsule 06/20/19 Diphenoxylate/Atropine [Lomotil] 1 each PO QID PRN #12 tablet 10/11/19 Naproxen 375 mg PO BID #20 tablet 10/11/19 Ondansetron Odt [Zofran] 4 mg TL Q6H PRN #10 tablet 10/11/19 - Allergies Allergies/Adverse Reactions: Allergies Allergy/AdvReac Type Severity Reaction Status Date / Time No Known Drug Allergies Allergy Verified 07/01/19 14:05 - Social History Does the pt smoke?: No Smoking Status: Never smoker Does the pt drink ETOH?: No Does the pt have substance abuse?: No - Immunizations Immunizations are current?: Yes - POLST Patient has POLST: No PD ED PE NORMAL - Vitals Vital signs reviewed: Yes - General General: Alert and oriented X 3, No acute distress, Well developed/nourished - HEENT HEENT: Ears normal, Moist mucous membranes, Pharynx benign - Neck Neck: Supple, no meningeal sign, No adenopathy - Cardiac Cardiac: RRR, No murmur - Respiratory Respiratory: Clear bilaterally - Abdomen Abdomen: Normal bowel sounds, Soft, Non distended, No organomegaly, Other (some tenderness right lower/suprapubic area. Lower than [place] point. No guarding nor percussion tenderness. ) Results - Vitals Vitals: Vital Signs - 24 hr 10/11/19 10/11/19 15:02 18:07 Temperature 36.6 C Heart Rate 73 72 Respiratory 18 18 Rate Blood Pressure 109/64 108/65 O2 Saturation 99 98 Oxygen O2 Source Room air - Labs Labs: Laboratory Tests 10/11/19 10/11/19 17:30 17:30 Urine Color YELLOW Urine Clarity CLEAR Urine pH 6.0 Ur Specific [place] >=1.030 H >=1.030 H Urine Protein NEGATIVE Urine Glucose (UA) NEGATIVE Urine Ketones NEGATIVE Urine Occult Blood NEGATIVE Urine Nitrite NEGATIVE Urine Bilirubin NEGATIVE Urine Urobilinogen 0.2 (NORMAL) Ur Leukocyte Esterase NEGATIVE Ur Microscopic Review NOT INDICATED Urine Culture Comments NOT INDICATED Urine HCG, Qual NEGATIVE - Rads (name of study) pelvic U/S Radiology: Prelim report reviewed (normal; no acute process. ), See rad report PD MEDICAL DECISION MAKING - ED course Complexity details: considered differential (I think the N/V/D today is sepa rate, like viral GE. She has had some right lower abd pains intermittently and more yesterday. Can get U/S, UA, HCG. Consider scar tissue/adhesions from C- Section, ovarian pains, UTI. ), d/w patient Departure - Departure Disposition: 01 Home, Self Care Clinical Impression: Nausea vomiting and diarrhea, Right lower quadrant abdominal pain Condition: Stable Record reviewed to determine appropriate education?: Yes Instructions: ED Gastroenteritis Vs Food Poison Follow-Up: JUAN MAO MD [Primary Care Provider] - Prescriptions: Diphenoxylate/Atropine [Lomotil] 1 each PO QID PRN #12 tablet PRN Reason: Diarrhea Naproxen 375 mg PO BID #20 tablet Ondansetron Odt [Zofran] 4 mg TL Q6H PRN #10 tablet PRN Reason: Nausea / Vomiting Comments: Stay well-hydrated. Ondansetron if needed for nausea. Lomotil if needed for diarrhea. This sounds likely to be either food related or a viral illness typically will be a day or 2 of symptoms. Your urine test and ultrasound did not show any ovarian or bladder problem for the lower pain. He could to have some scar tissue or adhesions related to your prior . Follow-up with gynecology regarding that. For now use some naproxen anti-inflammatories twice daily for the next 7 to 10 days. Add Tylenol if needed. Discharge Date/Time: 10/11/19 18:07
[2019-10-11] MEDS ORDERED: ACETAMINOPHEN 325 MG TABLET PO STA (16:16)
[2019-10-11] MEDS ORDERED: ONDANSETRON ODT 4 MG TABLET TL STA (16:16)
[2019-10-11] MEDS ORDERED: MAG HYDROX/AL HYDROX/SIMETH 30 ML UDC PO STA (16:16)
[2019-10-11] MEDS ORDERED: DIPHENOX/ATROPINE 2.5/0.025 MG TABLET PO STA (16:16)
[2019-10-11 17:42] LABS: BILIRUBIN,URINE NEGATIVE (NEGATIVE); GLUCOSE, URINE (UA) NEGATIVE (NEGATIVE); KETONES,URINE (UA) NEGATIVE (NEGATIVE); LEUKOCYTE ESTERASE, URINE NEGATIVE (NEGATIVE); NITRITE,URINE NEGATIVE (NEGATIVE); OCCULT BLOOD,URINE NEGATIVE (NEGATIVE); PROTEIN,URINE NEGATIVE (NEGATIVE); UROBILINOGEN,URINE 0.2 (NORMAL) E.U./dL (NORMAL)
[2019-10-11 17:46] LABS: CLARITY,URINE CLEAR (CLEAR); HCG UR QUAL NEGATIVE
--- NOTE | 2019-10-11 17:49 | Ultrasound Report ---
Reason: RLQ pelvic sharp pain Procedure Date: 10/11/2019 Accession Number: [id number] / [id number] Procedure: US - Pelvic w/Transvag+Doppler Ltd CPT Code: Final Report FULL RESULT: EXAM: PELVIC ULTRASOUND WITH DOPPLERS CLINICAL HISTORY: Right lower quadrant pelvic sharp pain. COMPARISON: OB TRANSVAGINAL 08/09/2018 9:03 PM TECHNIQUE: Realtime transabdominal imaging performed to identify the uterus and adnexa and as an overview of other pelvic structures, followed by transvaginal imaging for better assessment of the endometrium and adnexa, with static image documentation. Color flow imaging and Doppler spectral analysis was performed to evaluate blood flow to the ovaries given pelvic painandclinical concern for ovarian torsion. FINDINGS: Uterus: 6.1 x 2.4 x 3.4 cm, volume 26 cc. Anteverted position. Normal overall size and echotexture. Masses: None. Endometrium: 2 mm. Normal. Cervix: Unremarkable. Right Ovary: 3.1 x 2.3 x 3.3 cm, volume 8.0 cc. Normal echotexture.Arterial and venous blood flow are present. PSV 6.7 cm/sec. RI 0.8. Adnexa are unremarkable. Left Ovary: 3.3 x 1.5 x 1.7 cm, volume 4.4 cc. Normal echotexture.Arterial and venous blood flow are present. PSV 10.3 cm/sec. RI 0.5. Adnexa are unremarkable. Free Fluid: None. Other: None. IMPRESSION: 1. Normal pelvic ultrasound. 2. Arterial and venous blood flow are present to the ovaries bilaterally. RADIA
[2019-10-11 18:08] VITALS: BP 108/65
== END 2019-10-11 18:07 | disposition home or self-care (01) ==
LOC: ED 14:45
DX: R11.2 Nausea with vomiting, unspecified (principal); R19.7 Diarrhea, unspecified; R10.31 Right lower quadrant pain
CPT/HCPCS: 76830; 76856; 81003; 81025; 93976; 99284; A9270; Q0162; 81001; 87086